=== PATIENT | female | born 1970 | race American Indian/Alaskan Native ===

== ENCOUNTER 2018-08-15 11:00 | Inpatient (IN) | payer OTHER ==
--- NOTE | 2018-08-15 11:35 | ED PDOC ---
Arrival/HPI - General Time Seen by Provider: 08/15/18 11:21 Historian: Patient - History of Present Illness Narrative History of Present Illness (Text): 08/15/18 11:31 47 y/o female, pmh including asthma, taking control medication, nkda, c/o rt. lower leg discomfort x5 days and shortness of breath x 2 days. Pt. stated that she takes control, admits rt. lower leg discomfort x 5 days, admits exertional shortness of breath started 2 days ago, went to the urgent care and send to the ER for evaluation as there is concerning for PE. Pt. has no palpitation, no numbness or tingling, no rash, no nausea or vomiting, no headache or neck pain, no other medical or psychological complaints. Past Medical History - Provider Review Nursing Documentation Reviewed: Yes - Psychiatric Hx Substance Use: No Family/Social History - Physician Review Nursing Documentation Reviewed: Yes Family/Social History: Unknown Family HX Smoking Status: Never Smoked Hx Alcohol Use: No Hx Substance Use: No Allergies/Home Meds Allergies/Adverse Reactions: Allergies No Known Allergies Allergy (Verified 08/15/18 11:19) Review of Systems - Review of Systems Constitutional: absent: Fatigue, Fevers Eyes: absent: Vision Changes ENT: absent: Hearing Changes Respiratory: SOB. absent: Cough, Sputum Cardiovascular: absent: Chest Pain Gastrointestinal: absent: Abdominal Pain, Nausea, Vomiting Musculoskeletal: absent: Arthralgias, Back Pain Skin: absent: Rash, Pruritis Neurological: absent: Headache, Dizziness Psychiatric: absent: Anxiety, Depression Physical Exam Vital Signs Reviewed: Yes Temperature: Afebrile Blood Pressure: Hypertensive Pulse: Tachycardic Respiratory Rate: Normal Appearance: Positive for: Well-Appearing, Non-Toxic, Comfortable Pain Distress: None Mental Status: Positive for: Alert and Oriented X 3 - Systems Exam Head: Present: Atraumatic, Normocephalic Pupils: Present: PERRL Extroacular Muscles: Present: EOMI Conjunctiva: Present: Normal Mouth: Present: Moist Mucous Membranes Neck: Present: Normal Range of Motion Respiratory/Chest: Present: Clear to Auscultation, Good Air Exchange. No: Respiratory Distress, Accessory Muscle Use Cardiovascular: Present: Regular Rate and Rhythm, Normal S1, S2, Other (no edema). No: Murmurs Abdomen: No: Tenderness, Distention, Peritoneal Signs, Rebound, Guarding Back: Present: Normal Inspection Upper Extremity: Present: Normal Inspection. No: Cyanosis, Edema Lower Extremity: Present: Normal Inspection, NORMAL PULSES, Normal ROM, Neurovascularly Intact, Capillary Refill < 2 s. No: Edema, CALF TENDERNESS, Cyanosis, Rajani's Sign, Tenderness, Swelling, Erythema, Deformity, Temperature Abnormalties Neurological: Present: GCS=15, CN II-XII Intact, Speech Normal, Motor Func Grossly Intact, Gait Normal, Memory Normal Skin: Present: Warm, Dry, Normal Color. No: Rashes Psychiatric: Present: Alert, Oriented x 3, Normal Insight, Normal Concentration Medical Decision Making ED Course and Treatment: 08/15/18 11:36 -Labs -ekg -CTA Chest WELL criteria over 7 -RLE Venuous doppler -monitoring analyst 08/15/18 13:01 -Urine hcg: -EKG: Sinus Tachycardia @ 119 BPM, no ST elevation or depression, no T wave inversion. -CTA show Acute extensive bilateral pulmonary embolism involving the segmental and distal smaller branches in both lungs. Clear lungs. -RLE venuous doppler: -Labs are non-significant -Trop is negative -BNP is negative -Dimer 5250 -monitoring analyst -Pt. is vitally stable -Pt. has no heart strain, BNP and trop is normal, vitally stable -Pt. refused guaiac and no black stool and abominal pain/nausea/vomiting. -I discussed with Dr. Sutton, covering for Dr. Rushing (medical service montessori teacher), agreed to admit this patient but under Dr. Rushing service for telemetry and heparin. -I discussed with the patient/attending DR. Keane about this case and they agreed with the plan of care. -Will start IV heparin bolus and drip. - RAD Interpretation Radiology Orders: 08/15/18 11:29 ANGIO CHEST PE PROTOCOL [CT] Stat CTA Chest: Date of service: 08/15/2018 PROCEDURE: CT Chest with contrast (Pulmonary Angiogram) HISTORY: r/o pe, tachycardia COMPARISON: None available. TECHNIQUE: Axial computed tomography images were obtained of the chest in the pulmonary arterial phase of enhancement. Coronal and sagittal reformatted images were created and reviewed. Intravenous contrast dose: 100 mL Visipaque 320 Radiation dose: Total exam DLP = 531.59 mGy-cm. This CT exam was performed using one or more of the following dose reduction techniques: Automated exposure control, adjustment of the mA and/or kV according to patient size, and/or use of iterative reconstruction technique. FINDINGS: PULMONARY ARTERIES: There are extensive filling defects in the bilateral upper lobe, right middle lobe, lingular and lower lobe segmental and distal smaller pulmonary arteries. No evidence of saddle embolus. AORTA: No acute findings. No thoracic aortic aneurysm. No aortic atherosclerotic calcification or mural plaque present. LUNGS: The lungs are well inflated and clear. No nodule, mass or pulmonary consolidation. PLEURAL SPACES: No effusion or pneumothorax. HEART: No cardiomegaly. No significant pericardial effusion. No definite evidence for right ventricular strain. LYMPH NODES: No lymphadenopathy. BONES, CHEST WALL: Within normal limits for the patient's age. No fracture or destructive lesion OTHER FINDINGS: Unremarkable. IMPRESSION: Acute extensive bilateral pulmonary embolism involving the segmental and distal smaller branches in both lungs. Clear lungs. RLE Venuous Doppler: as per preliminary report, no acute DVT but there is lezama cyst. Process Tech: Radiologist - EKG Interpretation EKG Interpretation (Text): 08/15/18 11:40 Sinus Tachycardia @ 119 BPM, no ST elevation or depression, no T wave inversion. Interpreted by ED Physician: Yes Type: 12 lead EKG - PA / PRINT PROJECT MANAGER / Resident Statement MD/DO has reviewed & agrees with the documentation as recorded. Disposition/Present on Arrival - Present on Arrival Any Indicators Present on Arrival: No History of DVT/PE: No History of Uncontrolled Diabetes: No Urinary Catheter: No History of Decub. Ulcer: No History Surgical Site Infection Following: None - Disposition Have Diagnosis and Disposition been Completed?: Yes Diagnosis: Pulmonary embolism Disposition: HOSPITALIZED Disposition Time: 13:03 Patient Plan: Admission, Telemetry Patient Problems: Current Active Problems Problem Status Onset Pulmonary embolism Acute Condition: GUARDED
[2018-08-15 11:47] LABS: BASO # 0.01 K/mm3 (0.0-2.0); BASO % 0.1 % (0.0-3.0); EOS # 0.2 (0.0-0.7); EOS % 2.3 % (1.5-5.0); GRAN # 6.29 (1.4-6.5); GRAN % 68.3 % (50.0-68.0); HEMOGLOBIN 12.4 g/dL (12.0-16.0); LYMPH # 2.3 (1.2-3.4); LYMPH % 24.8 % (22.0-35.0); MEAN CELL VOLUME 77.3 fl (80.0-105.0); MEAN CORPUSCULAR HEMOGLOBIN 26.3 pg (25.0-35.0); MEAN PLATELET VOLUME 8.7 fl (7.0-11.0); MONO # 0.4 (0.1-0.6); MONO % 4.5 % (1.0-6.0); RBC 4.72 10^6/uL (3.5-6.1); RED CELL DISTRIBUTION WIDTH 13.8 % (11.5-14.5); WHITE BLOOD COUNT 9.2 10^3/uL (4.5-11.0)
[2018-08-15 12:01] LABS: ALBUMIN 4.1 g/dL (3.0-4.8); ALT/SGPT 21 U/L (7-56); AST/SGOT 28 U/L (14-36); BLOOD UREA NITROGEN 12 mg/dL (7-21); CALCIUM 9.8 mg/dL (8.4-10.5); GFR NON-AFRICAN AMERICAN 60
[2018-08-15 12:05] LABS: INR 1.04; PARTIAL THROMBOPLASTIN TIME 24.8 Seconds (25.1-36.5)
[2018-08-15 12:07] LABS: D DIMER > 5250 ng/mlDDU (0-243)
[2018-08-15] MEDS ORDERED: Iodixanol 320 MG/ML 100 ML BOTTLE IV ONE (12:12)
[2018-08-15 12:13] LABS: B-TYPE NATRIURETIC PEPTIDE 381 pg/mL (0-450); TROPONIN I 0.02 ng/mL
--- NOTE | 2018-08-15 12:52 | CT ---
Date of service: 08/15/2018 PROCEDURE: CT Chest with contrast (Pulmonary Angiogram) HISTORY: r/o pe, tachycardia COMPARISON: None available. TECHNIQUE: Axial computed tomography images were obtained of the chest in the pulmonary arterial phase of enhancement. Coronal and sagittal reformatted images were created and reviewed. Intravenous contrast dose: 100 mL Visipaque 320 Radiation dose: Total exam DLP = 531.59 mGy-cm. This CT exam was performed using one or more of the following dose reduction techniques: Automated exposure control, adjustment of the mA and/or kV according to patient size, and/or use of iterative reconstruction technique. FINDINGS: PULMONARY ARTERIES: There are extensive filling defects in the bilateral upper lobe, right middle lobe, lingular and lower lobe segmental and distal smaller pulmonary arteries. No evidence of saddle embolus. AORTA: No acute findings. No thoracic aortic aneurysm. No aortic atherosclerotic calcification or mural plaque present. LUNGS: The lungs are well inflated and clear. No nodule, mass or pulmonary consolidation. PLEURAL SPACES: No effusion or pneumothorax. HEART: No cardiomegaly. No significant pericardial effusion. No definite evidence for right ventricular strain. LYMPH NODES: No lymphadenopathy. BONES, CHEST WALL: Within normal limits for the patient's age. No fracture or destructive lesion OTHER FINDINGS: Unremarkable. IMPRESSION: Acute extensive bilateral pulmonary embolism involving the segmental and distal smaller branches in both lungs. Clear lungs. Critical findings were discussed with RIANA Eid on 08/15/2018 at 12:45 p.m.
[2018-08-15] MEDS ORDERED: Heparin25000 units/250ml 1/2NS 25,000 UNITS/250 ML BAG IV PRN (13:07)
[2018-08-15] MEDS: Heparin25000 units/250ml 1/2NS 25,000 UNITS/250 ML BAG IV PRN ×2 (13:24→20:47)
[2018-08-15 15:21] VITALS: BMI 34.8
[2018-08-16] MEDS: Heparin25000 units/250ml 1/2NS 25,000 UNITS/250 ML BAG IV PRN (04:34)
--- NOTE | 2018-08-16 10:03 | CARD ---
APPROVED REPORT Date of service: 08/15/2018 EKG Measurement Heart [id number] <Conclusion> Sinus tachycardia LAD PRWP RVCD
--- NOTE | 2018-08-16 10:56 | US ---
PROCEDURE: Right lower extremity venous US HISTORY: Leg pain and swelling. Evaluate for DVT. PHYSICIAN(S): Rufino Shelton M.D. TECHNIQUE: Duplex sonography and color-flow Doppler with graded compression were used to evaluate the deep venous system of the right lower extremity. FINDINGS: The exam is very limited by body habitus and edema P There appears to be acute occlusive thrombus in the duplicated right popliteal vein. The right femoral vein and right common femoral vein are patent and compressible. IMPRESSION: 1. Acute occlusive DVT in the duplicated right popliteal vein
[2018-08-16] MEDS: Levalbuterol 1.25 MG/3 ML Inhal Soln UD IH SCH ×2 (13:46→19:49)
--- NOTE | 2018-08-16 14:26 | CON ---
DATE: 08/16/2018 PULMONARY CONSULTATION REASON FOR PULMONARY CONSULTATION: Pulmonary embolism. REFERRING PHYSICIAN: Dr. Epi Rivera. HISTORY OF PRESENT ILLNESS: The patient is a 47-year-old female, with past medical history significant for asthma, on control medication, mild obesity, who presents to [facility] with main complaints of increasing shortness of breath at rest and dyspnea on exertion for the past 2 days. The patient denies cough or sputum production. There is no history of chest pain, coughing up of blood, or chest pain - made worse with deep respirations. There is no history of temperatures, chills or infectious exposure. There is no history of night sweats, weight loss or appetite change prior to the above events. The patient does state to some right lower leg(calf) discomfort for the past 5 days. No history of syncope or diaphoresis. No history of recent travel or trauma. REVIEW OF SYSTEMS: No history of nausea, vomiting or diarrhea. No acute urinary symptoms. No new neurologic complaints. Rest of the review of systems is negative. ALLERGIES: NO KNOWN ALLERGIES. SOCIAL HISTORY: Negative tobacco, negative for alcohol. FAMILY HISTORY: No inheritable diseases. HOME MEDICATIONS: Include control pills, ProAir MDI (on a p.r.n. basis). PHYSICAL EXAMINATION: GENERAL: The patient appears very comfortable this morning. She is not short of breath at rest. VITAL SIGNS: Temperature is 98.6, pulse 96, respirations 18, blood pressure 150/95. Oxygen saturation on room air is 98%. HEENT: Normocephalic, atraumatic. No JVD. CARDIOVASCULAR: Positive S1, S2. No S3 gallop. LUNGS: Clear bilaterally. EXTREMITIES: The right lower extremity(calf) is slightly increased in size compared to the left lower extremity (calf). There is mild edema in both lower extremities. There is no cyanosis or clubbing. Both calves are nontender to palpation. GI: Abdomen is soft, nontender and nondistended. Bowel sounds are positive. SKIN: No acute rash. NEUROLOGIC: Exam limited at the present time. PERTINENT LABORATORY DATA: CAT scan of the chest was done as an angiogram protocol. There are acute extensive bilateral pulmonary emboli noted. There is no mass, nodule or pulmonary consolidation noted. There is no lymphadenopathy. CBC: White count 9.2K, hemoglobin 12.4, hematocrit 36.5, platelets of 244,000. Last PTT in the computer 79.4. Complete metabolic profile: Chloride 108, glucose 112. Rest of the metabolic profile is within normal limits. IMPRESSION: 1. Bilateral pulmonary emboli. 2. Rule out right deep venous thrombosis. 3. Asthma. 4. Mild obesity. PLAN: I did discuss the case with the night nurse at length. I have also reviewed the chart at length, and discussed the case with the patient at length. The patient presents to [facility] with main complaints of increasing shortness of breath at rest and dyspnea on exertion for the past 2 days. The patient also complains of right lower extremity(calf) pain for the past 5 days. She offers no other pulmonary symptoms. I did review the CAT scan of the chest. Findings are noted above. The CAT scan is positive for bilateral pulmonary emboli. The patient has been started on the heparin protocol. We are awaiting the official results of the duplex leg studies. I will also order an echocardiogram(check right ventricle) - given the above CAT scan. The patient is hemodynamically stable at present with no significant alveolar- arterial gradient. Lastly, I would also consider a hematology evaluation. The patient is feeling much better this morning, and is clinically improved. We will evaluate the patient for an oral agent (evaluate her insurance coverage) over the next 24 hours. Additional pulmonary intervention will be based on the clinical status of the patient. I will discuss the above with the attending physician. Thank you very much for this Pulmonary consultation. Mikey Webster MD [id number]
--- NOTE | 2018-08-16 20:09 | HP ---
HISTORY OF PRESENT ILLNESS: The patient is 47 years old she states she has not been feeling well since last Thursday. She felt little tightness in her right leg, she has just dismissed it. However on Thursday, she started to get shortness of breath not related to any activity. She went to see the MD. When they checked her pulse ox and heart rate, she was found to be tachycardiac and they advised her to come to emergency room for further evaluation. She denies any fever or chills. No history of nausea or vomiting. PAST MEDICAL HISTORY: She has no significant past medical history. SOCIAL HISTORY: She is not . She has no children. She does have a boyfriend. She takes control pill that she has been taking for years. No history of recent travel or recent trauma. 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 ALLERGY: SHE IS NOT ALLERGIC TO ANY MEDICATION. MEDICATION: She is not on any medication at home. PHYSICAL EXAMINATION: GENERAL: On examination today, she is awake, alert, oriented, communicative. VITAL SIGNS: She is afebrile. Pulse 81, respirations 18, blood pressure 131/90. LUNGS: Bilateral fair airflow. No rhonchi or crackle. HEART: S1, S2 audible. ABDOMEN: Soft and nontender. No rebound. No guarding. NEUROLOGIC: She is awake, alert, oriented, communicative, ambulatory. LABORATORY DATA: WBC 9.2, hemoglobin 12, hematocrit 36, platelet 244. PTT is 78. Chemistry; sodium 141, potassium 4.2, chloride 108, CO2 of 24, BUN 12, creatinine 1.0. Blood sugar 112. She had leg Doppler that shows acute occlusive DVT in the duplicate right popliteal vein and CT angio shows acute extensive bilateral pulmonary embolism involving segmental and distal small in both lungs. ASSESSMENT: 1. Bilateral pulmonary embolism. 2. Right popliteal deep vein thrombosis. PLAN: Currently, the patient is on heparin. I will request Dr. Alexander for her input. I will start her on nebulizer treatment. Will need coagulation workup done to determine her anticoagulation duration. Cesia Rushing MD [facility] # [id number]
[2018-08-17] MEDS: Levalbuterol 1.25 MG/3 ML Inhal Soln UD IH SCH ×3 (01:25→14:20)
[2018-08-17] MEDS ORDERED: DiphenhydrAMINE 50 mg/ml Inj IVP ONE (02:17)
--- NOTE | 2018-08-17 08:02 | PN ---
DATE: 08/17/2018 PULMONARY NOTE SUBJECTIVE: The patient appears very comfortable this morning. She is not short of breath at rest. PHYSICAL EXAMINATION: VITAL SIGNS: Temperature is 98.1, pulse 88, respirations 18/20, blood pressure 130/81. Oxygen saturation on room air is 99-100%. HEENT: Normocephalic, atraumatic. No JVD. CARDIOVASCULAR: Positive S1, S2. No S3 gallop. LUNGS: Clear bilaterally. EXTREMITIES: The right lower extremity is decreased in size - still very slightly larger compared to the left lower extremity (calf). There is mild edema in both lower extremities. There is no cyanosis or clubbing. Both calves are nontender to palpation. GI: Abdomen is soft, nontender and nondistended. Bowel sounds are positive. SKIN: No acute rash. NEUROLOGIC: Exam limited at the present time. PERTINENT LABORATORY DATA: Doppler ultrasound of the extremities was done on 08/15/2018. There is an acute occlusive deep venous thrombosis in the right popliteal vein. IMPRESSION: 1. Bilateral pulmonary emboli. 2. Right deep venous thrombosis. 3. Asthma. 4. Mild obesity. PLAN: The patient appears very comfortable this morning. She is not short of breath at rest. She does state to much less dyspnea on exertion. She does state to feeling much, much better overall. On physical exam, her lungs remain clear. The oxygen saturation on room air is 99-100%. The patient has been started on scheduled Xopenex treatments by Dr. Rushing. She does have a history of asthma. However, she only uses a metered-dose inhaler rarely (on a p.r.n. basis). Hypercoagulable workup is in progress. Hematology evaluation with Dr. Alexander has been ordered. Echocardiogram has also been ordered - not done yet. Clinical status of the patient is significantly improved - compared to the initial presentation. Again, we will try to change to an oral agent in the next 24-48 hours. Repeat a.m. labs are pending. I will discuss the above with the attending physician. Mikey Webster MD [facility] # [id number] YOLIS
[2018-08-17] MEDS: Heparin25000 units/250ml 1/2NS 25,000 UNITS/250 ML BAG IV PRN (12:31)
[2018-08-17] MEDS ORDERED: MethylPREDNISolone 40 mg Vial IVP ONE (15:14)
--- NOTE | 2018-08-17 17:45 | CARD ---
APPROVED REPORT Date of service: 08/17/2018 EXAM: Two-dimensional and M-mode echocardiogram with Doppler and color Doppler. INDICATION Pulmonary Embolism 2D DIMENSIONS Left Atrium (2D)3.5 (1.6-4.0cm)IVSd0.9 (0.7-1.1cm) LVDd4.4 (3.9-5.9cm)PWd1.1 (0.7-1.1cm) LVDs2.9 (2.5-4.0cm)FS (%) 35.1 % LVEF (%)64.6 (>50%) M-Mode DIMENSIONS Aortic Root3.30 (2.2-3.7cm)Aortic Cusp Exc.1.60 (1.5-2.0cm) Aortic Valve AoV Peak Zssskruv594.0cm/Nathan Peak GR.5mmHg Mitral Valve MV E Gytihckk19.6cm/sMV A Txdugvdx18.6cm/sE/A ratio1.0 TDI E/Lateral E'0.0E/Medial E'0.0 Tricuspid Valve TR Peak Zmefymya222vm/sRAP [id number] Peak Gr.20mmHg [id number] LEFT VENTRICLE The left ventricle is normal size. There is normal left ventricular wall thickness. The left ventricular function is normal. The left ventricular ejection fraction is within the normal range. There is normal LV segmental wall motion. Transmitral Doppler flow pattern is Grade I-abnormal relaxation pattern. RIGHT VENTRICLE The right ventricle is normal size. There is normal right ventricular wall thickness. The right ventricular systolic function is normal. ATRIA The left atrium size is normal. The right atrium size is normal. AORTIC VALVE The aortic valve is normal in structure. No aortic regurgitation is present. There is no aortic valvular stenosis. MITRAL VALVE The mitral valve is normal in structure. There is no mitral valve regurgitation noted. There is no mitral valve stenosis. TRICUSPID VALVE The tricuspid valve is normal in structure. There is trace tricuspid regurgitation. PULMONIC VALVE The pulmonary valve is normal in structure. There is mild pulmonic valvular regurgitation. GREAT VESSELS The aortic root is normal in size. PERICARDIAL EFFUSION There is no pericardial effusion. <Conclusion> The left ventricle is normal size. There is normal left ventricular wall thickness. The left ventricular function is normal. The left ventricular ejection fraction is within the normal range. There is normal LV segmental wall motion. Transmitral Doppler flow pattern is Grade I-abnormal relaxation pattern.
--- NOTE | 2018-08-17 22:35 | PN ---
DATE: 08/17/2018 SUBJECTIVE: The patient is 47 years old, seen and examined, sitting in chair, seems to be doing much better. She states her shortness of breath is much better. PHYSICAL EXAMINATION: VITAL SIGNS: She is afebrile, pulse 103, respirations 18, blood pressure 137/95. LUNGS: Bilateral fair airflow. No rhonchi or crackle. HEART: S1 and S2 audible. ABDOMEN: Soft. Nontender. No rebound. No guarding. NEUROLOGICAL: The patient is awake, alert, oriented, communicative. ECHOCARDIOGRAM: Left ventricle normal in size and thickness. Function is within normal limit. Ejection fraction is within normal limit. ASSESSMENT AND PLAN: Bilateral leg deep venous thrombosis, bilateral pulmonary embolism, probably secondary to oral contraceptives. Coagulation workup is in progress. The patient has been started on Eliquis 10 mg twice a day for 10 days and then it will be switched to 5 mg twice a day until the workup is back. The patient did have allergic reaction to Xopenex, that we will discontinue. Give her Claritin and give her dose of Solu-Medrol. We will reevaluate the patient in the a.m. and make discharge plan. Cesia Rushing MD
[2018-08-18 05:53] VITALS: O2SAT 94
--- NOTE | 2018-08-18 10:43 | CP.PCM.CON ---
History of Present Illness - History of Present Illness History of Present Illness: 47 year old female with a history of asthma, admitted with right popliteal DVT, and bilateral PE. The patient notes to discomfort in her right leg which she thought was related to pulled muscle. She began to have progressive shortness of breath and went to an urgent care clinic this past week and told to come to the ER due to concern for PE. In the ER, she was found to have a right popliteal DVT and bilateral pulmonary embolism. She was started on a heparin drip and reports to feeling better. Of note, she is taking oral control pills. She denies immobility and trauma to her extremities. Past medical history: Asthma Past surgical history: Denies Family history: Denies hematologic and oncologic problems Social history: Denies tobacco, alcohol, and illicit drug use. Allergies: Levalbuterol Review of systems: All remaining review of systems including HEENT, cardiovascular, respiratory, gastrointestinal, genitourinary, musculoskeletal, dermatologic, neurologic, and psychiatric are negative unless mentioned in the HPI. Past Patient History - Past Social History Smoking Status: Never Smoked - PULMONARY Hx Asthma: Yes - MUSCULOSKELETAL/RHEUMATOLOGICAL Hx Falls: No - PSYCHIATRIC Hx Substance Use: No - SURGICAL HISTORY Hx Surgeries: No Meds Allergies/Adverse Reactions: Allergies Allergy/AdvReac Type Severity Reaction Status Date / Time levalbuterol [From Xopenex] Allergy Intermediate RASH Verified 08/17/18 15:50 - Medications Medications: Current Medications Apixaban (Eliquis) 10 mg PO Q12 TERRIE; Protocol Last Admin: 08/18/18 10:03 Dose: 10 mg Physical Exam - Head Exam Head Exam: ATRAUMATIC - Eye Exam Eye Exam: Normal appearance - ENT Exam ENT Exam: Mucous Membranes Dry - Respiratory Exam Respiratory Exam: NORMAL BREATHING PATTERN - Cardiovascular Exam Cardiovascular Exam: +S1, +S2 - GI/Abdominal Exam GI & Abdominal Exam: Normal Bowel Sounds - Extremities Exam Extremities exam: Positive for: pedal edema - Neurological Exam Neurological exam: Oriented x3 - Psychiatric Exam Psychiatric exam: Normal Affect, Normal Mood - Skin Skin Exam: Warm Results - Vital Signs Recent Vital Signs: Last Vital Signs Temp 98.5 F 08/18/18 05:52 Pulse 90 08/18/18 05:52 Resp 21 08/18/18 05:52 BP 119/73 08/18/18 05:52 Pulse Ox 94 L 08/18/18 05:52 - Labs Result Diagrams: 08/15/18 11:35 08/15/18 11:35 Labs: Laboratory Results - last 24 hr 08/16/18 13:30 Anti-Cardiolipin IgG Ab <14 Assessment & Plan (1) Pulmonary embolism Assessment and Plan: with right popliteal DVT likely provoked from control pills; pt instructed to stop and notify ROLL CHANGER of DVT/PE on heparin drip outpatient Eliquis 10mg BID x 7 days, followed by 5mg BID x6 months inherited thrombophilia w/u sent. F/u 1 week with me in the office Status: Acute (2) Coagulopathy Assessment and Plan: secondary to anticoagulation Thank you for this interesting consult. Status: Acute
--- NOTE | 2018-08-18 11:49 | PN ---
PULMONARY NOTE DATE: 08/18/2018 SUBJECTIVE: The patient appears very comfortable this morning. She is not short of breath at rest. PHYSICAL EXAMINATION: VITAL SIGNS: Temperature is 98.5, pulse on the monitor is 84, respiratory rate 18, and blood pressure 119/73. Oxygen saturation on nasal cannula is 94%-97%. HEENT: Normocephalic and atraumatic. No JVD. CARDIOVASCULAR: Positive S1 and S2. No S3 gallop. LUNGS: Clear bilaterally. EXTREMITIES: The right calf continues to decrease in size - almost the same size as the left calf. There is mild edema in both lower extremities. There is no cyanosis or clubbing. Both calves are nontender to palpation. GASTROINTESTINAL: Abdomen is soft, nontender, and nondistended. Bowel sounds are positive. SKIN: No acute rash. NEUROLOGIC: Limited at the present time. IMPRESSION: 1. Bilateral pulmonary emboli. 2. Right deep venous thrombosis. 3. Asthma. 4. Mild obesity. PLAN: The patient appears very comfortable this morning. She is not short of breath at rest. She is no longer short of breath with exertion. She does state to feeling much, much better overall. On physical exam, her lungs remain clear. In addition, there is no significant alveolar-arterial gradient. The patient is now off nebulizer treatments. The patient has been transitioned to Eliquis therapy - for her pulmonary embolism. We are awaiting a Hematology evaluation. Workup is in progress. Clinical status of the patient is significantly improved overall. Hopefully, she is for discharge in the near future. She does have my card/information for a followup appointment. I will discuss the above with Dr. Rushing. Mikey Webster MD MTDJasmin
[2018-08-18 12:18] VITALS: BP 178/82; PULSE 81; RESP 18; TEMP 98.9
--- NOTE | 2018-08-19 08:48 | DS ---
HISTORY OF PRESENT ILLNESS: Patient is 47 years old, seen and examined, doing lot better. No nausea or vomiting. No diarrhea. No fever. No chills. Less shortness of breath. PHYSICAL EXAMINATION: VITAL SIGNS: She is afebrile, pulse 90, respirations 21, and blood pressure 119/73. LUNGS: Bilateral fair airflow. No rhonchi or crackle. HEART: S1, S2 audible. ABDOMEN: Soft, nontender. No rebound. No guarding. NEUROLOGIC: Patient is awake, alert, oriented, communicative, and ambulatory. LABORATORY DATA: Laboratory exam, her PTT is 70.2. Chemistry, homocysteine is 7.3, anticardiolipin antibody is less than 14. ASSESSMENT: 1. Bilateral PE. 2. Bilateral deep vein thromboses, probably secondary to control pills. PLAN: Patient is being discharged today. She was advised not to be on oral contraceptive, they should use barrier method and discuss further option with [employer], and she is being discharged home today on Eliquis 10 mg twice a day for a week and then 5 mg twice a day and then she will be followed by Dr. Kd Michael in his office and to follow up further workup. Cesia Rushing MD
--- NOTE | 2018-08-20 08:34 | PQF ---
PROVIDER RESPONSE TEXT: Mild intermittent asthma REVIEWER QUERY TEXT: Asthma Specificity and Type Asthma is documented in the Medical Record. Please specify the type and severity of asthma and indic ate if this is associated with exacerbation or status asthmaticus. Such as: -- Mild intermittent -- Mild persistent -- Moderate persistent -- Severe persistent -- Exercise induced bronchospasm -- Cough variant asthma -- Other, please specify The patient's Clinical Indicators include: Please see below. Thank you. Query created by: Shanda Arrington on 08/19/2018 11:48 AM Electronically signed by: Mikey MOYA 08/20/2018 8:31 AM
[2018-08-21 03:30] LABS: B2 GLYCOPROTEIN I AB(IGA) <9 SAU (<=20); B2 GLYCOPROTEIN I AB(IGG) <9 SGU (<=20); B2 GLYCOPROTEIN I AB(IGM) 10 SMU (<=20)
[2018-08-21 05:23] LABS: CARDIOLIPIN AB (IGA) <11 APL (<=11); CARDIOLIPIN AB (IGG) <14 GPL (<=14); CARDIOLIPIN AB (IGM) <12 MPL (<=12)
[2018-08-21 05:42] LABS: PHOSPHATIDYLSERINE AB IGA <20 U/mL (<20); PHOSPHATIDYLSERINE AB IGG <10 U/mL (<10); PHOSPHATIDYLSERINE AB IGM <25 U/mL (<25)
== END 2018-08-18 14:48 | disposition home or self-care (01) | DRG 299 ==
LOC: ED 11:15 → ERH 13:06 → 2RSO 14:26
PROVIDERS: ADMIT Internal Medicine; ATTEND Internal Medicine
DX: I82.431 Acute embolism and thrombosis of right popliteal vein (principal); I26.99 Other pulmonary embolism without acute cor pulmonale; D68.9 Coagulation defect, unspecified; I82.403 Acute embolism and thrombosis of unspecified deep veins of lower extremity, bilateral; J45.20 Mild intermittent asthma, uncomplicated; E66.9 Obesity, unspecified; Z87.09 Personal history of other diseases of the respiratory system; M71.20 Synovial cyst of popliteal space [Baker], unspecified knee; Z88.8 Allergy status to other drugs, medicaments and biological substances

== ENCOUNTER 2018-11-14 14:24 | Observation (INO) | payer BC, OTHER ==
[2018-11-14] MEDS ORDERED: Morphine 2 mg/ml ISec IVP STA (14:46)
[2018-11-14 15:05] LABS: ALB/GLOB RATIO 1.1 (1.1-1.8); ALBUMIN 4.4 g/dL (3.0-4.8); ALT/SGPT 29 U/L (7-56); AST/SGOT 38 U/L (14-36); BLOOD UREA NITROGEN 18 mg/dL (7-21); CALCIUM 10.7 mg/dL (8.4-10.5); GFR NON-AFRICAN AMERICAN 59
--- NOTE | 2018-11-14 15:11 | ED PDOC ---
Arrival/HPI - General Chief Complaint: Chest Pain Time Seen by Provider: 11/14/18 14:37 Historian: Patient - Critical Care Critical Care Minutes: Other (10 minutes) - History of Present Illness Narrative History of Present Illness (Text): 11/14/18 15:08 A 48 year old female, whose past medical history includes DVT on Xarelto, presents to the emergency department complaining of back pain radiating to chest. Patient reports back pain feels worse than chest pain. At this time patient appears to be anxious. Patient denies any shortness of breath, or any other complaints at this time. No PMD Past Medical History - Provider Review Nursing Documentation Reviewed: Yes - Reproductive Currently : No - Pulmonary Hx Asthma: Yes Hx Pulmonary Embolism: Yes - Musculoskeletal/Rheumatological Hx Falls: No Other/Comment: DVT - Psychiatric Hx Substance Use: No Family/Social History - Physician Review Nursing Documentation Reviewed: Yes Family/Social History: No Known Family HX Smoking Status: Never Smoked Hx Alcohol Use: No Hx Substance Use: No Allergies/Home Meds Allergies/Adverse Reactions: Allergies levalbuterol [From Xopenex] Allergy (Intermediate, Verified 08/17/18 15:50) RASH rash and pruities Home Medications: Home Meds Medication Instructions Recorded Confirmed Rivaroxaban [Xarelto] 20 mg PO DAILY 11/14/18 11/14/18 Review of Systems - Physician Review All systems were reviewed & negative as marked: Yes - Review of Systems Cardiovascular: Chest Pain Musculoskeletal: Back Pain (radiating to chest) Psychiatric: Anxiety Physical Exam Vital Signs Reviewed: Yes Vital Signs Temp Pulse BP Pulse Ox 11/14/18 14:45 98.0 F 99 11/14/18 14:39 87 141/84 Blood Pressure: Normal Pulse: Regular Appearance: Positive for: Well-Appearing, Non-Toxic, Comfortable Pain Distress: None Mental Status: Positive for: Alert and Oriented X 3 - Systems Exam Head: Present: Atraumatic, Normocephalic Pupils: Present: PERRL Extroacular Muscles: Present: EOMI Conjunctiva: Present: Normal Mouth: Present: Moist Mucous Membranes Neck: Present: Normal Range of Motion. No: JVD Respiratory/Chest: Present: Clear to Auscultation, Good Air Exchange. No: Respiratory Distress, Accessory Muscle Use Cardiovascular: Present: Regular Rate and Rhythm, Normal S1, S2. No: Murmurs Abdomen: No: Tenderness, Distention, Peritoneal Signs Back: Present: Normal Inspection, Other (back pain radiating to chest region.) Upper Extremity: Present: Normal Inspection. No: Cyanosis, Edema Lower Extremity: Present: Normal Inspection. No: Edema Neurological: Present: GCS=15, CN II-XII Intact, Speech Normal Skin: Present: Warm, Dry, Normal Color. No: Rashes Psychiatric: Present: Alert, Oriented x 3, Normal Insight, Normal Concentration Medical Decision Making ED Course and Treatment: 11/14/18 15:11 Impression: 48 year old female with back pain radiating to chest. Differential Diagnoses: chest pain and back pain rule out DC. Plan: -- EKG -- Chest X-ray -- Labs -- Angiography Disection CT -- Morphine -- Urinalysis -- Nasal Cannula O2 -- Reassess and disposition Progress Notes: 11/14/18 14:28 EKG: Ordered, reviewed, and independently interpreted the EKG. Rate : 106 BPM Rhythm : Sinus tachycardia. Interpretation : Left axis deviation, with ST-elevations at v1 and v2, no reciprocal changes. Comparison : No previous EKG for comparison. 11/14/18 14:35 EKG: Ordered, reviewed, and independently interpreted the EKG. Rate : 94 BPM Rhythm : NSR Interpretation : Left axis deviation, isolated v2 ST-elevation. Comparison : No previous EKG for comparison. 11/14/18 14:[address] Giron, who requested to have EKG messaged to him. 11/14/18 14:45 Dr. Giron calls and states it is not a STEMI, requesting to have a repeat EKG at 15:00 and to continue monitoring patient. 11/14/18 15:04 EKG: Ordered, reviewed, and independently interpreted the EKG. Rate : 92 BPM Rhythm : NSR Interpretation : Left axis deviation, no ST- or T- wave changes. Comparison : No previous EKG for comparison. 11/14/18 15:08 Dr. Giron states repeat EKG shows no STEMI, and to continue monitoring patient. 11/14/2018 16:[address] IMPRESSION: No evidence of aortic dissection or aneurysm. Previously noted bilateral central pulmonary emboli in the previous CTA is not clearly seen in the current study. Mild pulmonary vascular congestion. No CT evidence of acute pathology in the abdomen and pelvis. Dictator: Linda Lewis MD - Lab Interpretations Lab Results: Total Bilirubin 0.3 mg/dL (0.2-1.3) 11/14/18 14:51 AST 38 U/L (14-36) H D 11/14/18 14:51 ALT 29 U/L (7-56) 11/14/18 14:51 Alkaline Phosphatase 88 U/L (38-126) 11/14/18 14:51 Total Protein 8.4 g/dL (5.8-8.3) H 11/14/18 14:51 Albumin 4.4 g/dL (3.0-4.8) 11/14/18 14:51 Globulin 4.0 gm/dL 11/14/18 14:51 Albumin/Globulin Ratio 1.1 (1.1-1.8) 11/14/18 14:51 - RAD Interpretation Radiology Orders: 11/14/18 14:48 CHEST ONE VIEW [RAD] Stat - Medication Orders Current Medication Orders: Discontinued Medications Morphine Sulfate (Morphine) 2 mg IVP STAT STA Stop: 11/14/18 14:47 Last Admin: 11/14/18 15:03 Dose: 2 mg MAR Pain Assessment Document 11/14/18 15:03 MR (Rec: 11/14/18 15:05 [id number] Pain Reassessment Is this a pain reassessment? Yes Sleep Is patient sleeping during reassessment? No Presence of Pain Presence of Pain Yes Pain Scale Used Protocol: PSCALES Pain Scale Used Numeric Location Left, Right or Bilateral Right Pain Location Body Site Back Description Description Sharp Intensity of Pain at present 5 Aggravating Factors Changing Position IVP Administration Document 11/14/18 15:03 MR (Rec: 11/14/18 15:05 [id number] Charges for Administration # of IVP Administrations 1 - Scribe Statement The provider has reviewed the documentation as recorded by the Hemalathaibana maria Casper Provider Scribe Attestation: All medical record entries made by the Scribe were at my direction and personally dictated by me. I have reviewed the chart and agree that the record accurately reflects my personal performance of the history, physical exam, medical decision making, and the department course for this patient. I have also personally directed, reviewed, and agree with the discharge instructions and disposition. Disposition/Present on Arrival - Present on Arrival Any Indicators Present on Arrival: No History of DVT/PE: Yes History of Uncontrolled Diabetes: No Urinary Catheter: No History of Decub. Ulcer: No History Surgical Site Infection Following: None - Disposition Have Diagnosis and Disposition been Completed?: Yes Diagnosis: Chest pain Disposition: HOSPITALIZED Disposition Time: 17:26 Patient Plan: Admission Condition: GOOD
[2018-11-14 15:16] LABS: TROPONIN I < 0.01 ng/mL
[2018-11-14 15:24] LABS: BASO # 0.02 K/mm3 (0.0-2.0); BASO % 0.2 % (0.0-3.0); EOS # 0.1 (0.0-0.7); EOS % 1.5 % (1.5-5.0); HEMOGLOBIN 11.6 g/dL (12.0-16.0); LYMPH # 3.1 (1.2-3.4); LYMPH % 35.2 % (22.0-35.0); MEAN CELL VOLUME 78.4 fl (80.0-105.0); MEAN CORPUSCULAR HEMOGLOBIN 25.8 pg (25.0-35.0); MEAN CORPUSCULAR HGB CONC 32.9 g/dl (31.0-37.0); MEAN PLATELET VOLUME 9.2 fl (7.0-11.0); MONO # 0.4 (0.1-0.6); MONO % 4.3 % (1.0-6.0); RBC 4.5 10^6/uL (3.5-6.1); RED CELL DISTRIBUTION WIDTH 14.2 % (11.5-14.5); WHITE BLOOD COUNT 8.9 10^3/uL (4.5-11.0)
[2018-11-14] MEDS ORDERED: Iodixanol 320 MG/ML 100 ML BOTTLE IV ONE (16:01)
--- NOTE | 2018-11-14 16:56 | CT ---
PROCEDURE: CT Angiography Chest, Abdomen and Pelvis with and without intravenous contrast HISTORY: back pain radiating to chest COMPARISON: Comparison is made with the previous CTA of the chest dated 08/15/2018 TECHNIQUE: Contiguous axial images of the chest, abdomen and pelvis were obtained in the phase of aortic enhancement. A noncontrast enhanced CT of the chest was also obtained to evaluate for possible intramural thrombus. Coronal and sagittal reformats were generated. IV dose administered: 100 mL of Omnipaque 350 intravenously. Radiation dose: Total exam DLP = 1525.51 mGy-cm. This CT exam was performed using one or more of the following dose reduction techniques: Automated exposure control, adjustment of the mA and/or kV according to patient size, and/or use of iterative reconstruction technique. FINDINGS: CT ANGIOGRAPHY OF THE CHEST WITH & WITHOUT CONTRAST: AORTA (CHEST AND ABDOMEN): The thoracic and abdominal aorta are unremarkable, without aneurysm, dissection or rupture. No intramural thrombus identified in the thoracic aorta on the non-contrast ct of the chest. The celiac axis, superior mesenteric artery, inferior mesenteric artery and the renal arteries are widely patent. The pelvic arteries are unremarkable. LUNGS: No evidence of infiltrate or consolidation. Ground-glass opacities may represent mild congestion. MEDIASTINUM: Unremarkable. Normal caliber aorta. The main pulmonary artery is borderline enlarged measures 3 centimeter in the transverse diameter. No aortic dissection. Normal size heart. LYMPH NODES: Unremarkable. PLEURA: Unremarkable. No pneumothorax. No pleural fluid. BONES: Unremarkable. OTHER FINDINGS: None. CT ANGIOGRAPHY OF THE ABDOMEN AND PELVIS WITH CONTRAST: LIVER: The liver is mildly enlarged. Akje-ue-yyohifmm hepatic steatosis is noted. GALLBLADDER AND BILE DUCTS: Unremarkable. PANCREAS: Unremarkable. No gross lesion or ductal dilatation. SPLEEN: Unremarkable. ADRENALS: Unremarkable. No mass. KIDNEYS AND URETERS: Unremarkable. No hydronephrosis. No solid mass. VASCULATURE: Unremarkable. No aortic aneurysm. No aortic atherosclerotic calcification or mural plaque present. STOMACH AND BOWEL: Unremarkable. No obstruction. No gross mural thickening. APPENDIX: Normal appendix. PERITONEUM: Unremarkable. No free fluid. No free air. LYMPH NODES: Unremarkable. No enlarged lymph nodes. BLADDER: Unremarkable. REPRODUCTIVE: Unremarkable. BONES: No acute fracture. OTHER FINDINGS: None. IMPRESSION: No evidence of aortic dissection or aneurysm. Previously noted bilateral central pulmonary emboli in the previous CTA is not clearly seen in the current study. Mild pulmonary vascular congestion. No CT evidence of acute pathology in the abdomen and pelvis.
--- NOTE | 2018-11-14 18:04 | RAD ---
Date of service: 11/14/2018 PROCEDURE: CHEST RADIOGRAPH, 1 VIEW HISTORY: chest pain COMPARISON: None available. FINDINGS: LUNGS: Clear. PLEURA: No pneumothorax or pleural fluid seen. CARDIOVASCULAR: No aortic atherosclerotic calcification present. Normal. OSSEOUS STRUCTURES: No significant abnormalities. VISUALIZED UPPER ABDOMEN: Normal. OTHER FINDINGS: None. IMPRESSION: No active disease.
[2018-11-14 19:50] LABS: B-TYPE NATRIURETIC PEPTIDE 68.6 pg/mL (0-450); TROPONIN I < 0.01 ng/mL
[2018-11-14 22:34] VITALS: BMI 37.3
[2018-11-15 02:00] VITALS: RESP 20
--- NOTE | 2018-11-15 02:01 | HP ---
DATE OF EXAM: 11/14/2018 HISTORY OF PRESENT ILLNESS: I was called down to the emergency room to admit her. She is a 48-year-old female who presents to the emergency room complaining of back pain and chest pain. It feels worse when she takes a deep breath in, she is very anxious, and some shortness of breath. She has a history of DVT, on Xarelto. PRIMARY MEDICAL DOCTOR: She has no medical primary doctor. PAST MEDICAL HISTORY: Asthma and pulmonary embolism. She has a DVT. FAMILY HISTORY: No known family history. SOCIAL HISTORY: Never smoked. No alcohol. No drugs. ALLERGIES: SHE HAS ALLERGIES TO XOPENEX. MEDICATIONS: She is on Xarelto. REVIEW OF SYSTEMS: No acute vision or hearing changes. No sore throat. There is chest pain and upper back pain, very tender to palpation. She is very anxious. No abdominal pain. No nausea, vomiting, constipation, or diarrhea. No leg pains. Extremities are okay. PHYSICAL EXAMINATION: VITAL SIGNS: She has 98 temperature, 87 pulse, 141/84 blood pressure, and 99% O2 sat. GENERAL: Well-appearing, uncomfortable with back pain, upper chest pain, alert and oriented x3. HEENT: Head is atraumatic and normocephalic. Extraocular muscles are intact. Pupils are equal and reactive to light. Throat is moist. NECK: Supple. HEART: Regular rate. Normal S1 and S2. LUNGS: Decreased breath sounds, but clear to auscultation. ABDOMEN: Soft and nontender. Positive bowel sounds. BACK: Back is very tender to pain in the upper back and in the chest. EXTREMITIES: No edema of both legs and upper extremity, she can move very well. NEUROLOGIC: GCS is 15. Cranial nerves II through XII grossly intact. Speech is normal. Alert and oriented x3. SKIN: Warm and dry. No apparent rashes appreciated. LYMPHS: Thyroid midline. No palpable appreciable lymphadenopathy. LABORATORY DATA: She had multiple tests done. She had a chest x-ray, no active disease. She had a CT angio of the chest, questionable history of DVT, it showed no evidence of aortic dissection or aneurysm. Previously noted bilateral central pulmonary emboli and previous CTA is not clearly seen. Mild pulmonary vascular congestion, CAT scan evidence of acute pathology in the abdomen. She has an 8.9 white count, 11.6 hemoglobin, 35.3 hematocrit with 346 platelets. D-dimer is 202. Sodium 143, potassium 3.7, BUN 18, creatinine 1, GFR is 69, sugar is 115, and calcium is 10.7 a bit high. Magnesium is 1.7, total bili is 0.3, AST is 38, ALT is 29, and alk phos 88. Lactate dehydrogenase is 498, total creatine kinase is 184. Troponin I is less than 0.01, total protein is 8.4, albumin is 4.4, and globulin 4. I did not see a BNP done. ASSESSMENT AND PLAN: I will order Dr. Li consult, Cardiology. Check labs tomorrow morning. We will check the troponins. I have given some Toradol for pain. She will go back on her Xarelto. EKGs are pending. She is having severe chest pain, upper back pain, not sure why. We will continue aggressive treatment and care. She will be on observation level of care. Rajendra Amos DO MTDD
[2018-11-15 03:23] LABS: HEMOGLOBIN 11.1 g/dL (12.0-16.0); MEAN CELL VOLUME 78.9 fl (80.0-105.0); MEAN CORPUSCULAR HEMOGLOBIN 25.8 pg (25.0-35.0); MEAN CORPUSCULAR HGB CONC 32.6 g/dl (31.0-37.0); MEAN PLATELET VOLUME 8.9 fl (7.0-11.0); RBC 4.31 10^6/uL (3.5-6.1); RED CELL DISTRIBUTION WIDTH 14.3 % (11.5-14.5); WHITE BLOOD COUNT 7.1 10^3/uL (4.5-11.0)
[2018-11-15 03:35] LABS: TROPONIN I < 0.01 ng/mL
[2018-11-15 04:12] LABS: ALB/GLOB RATIO 1.1 (1.1-1.8); ALT/SGPT 31 U/L (7-56); AST/SGOT 26 U/L (14-36); BLOOD UREA NITROGEN 21 mg/dL (7-21); CALCIUM 9.7 mg/dL (8.4-10.5); GFR NON-AFRICAN AMERICAN 48
[2018-11-15 05:43] VITALS: BP 122/74; PULSE 72; TEMP 97.9; O2SAT 100
--- NOTE | 2018-11-15 10:14 | CARD ---
APPROVED REPORT Date of service: 11/14/2018 EKG Measurement Heart [id number] <Conclusion> Sinus tachycardia Minimal voltage criteria for LVH, may be normal variant Borderline ECG
--- NOTE | 2018-11-15 10:14 | CARD ---
APPROVED REPORT Date of service: 11/14/2018 EKG Measurement Heart [id number] <Conclusion> Normal sinus rhythm Minimal voltage criteria for LVH, may be normal variant Borderline ECG
--- NOTE | 2018-11-15 12:37 | CARD ---
APPROVED REPORT Date of service: 11/14/2018 EKG Measurement Heart [id number] [place] [id number] <Conclusion> Normal sinus rhythm Moderate voltage criteria for LVH, may be normal variant Borderline ECG
--- NOTE | 2018-11-15 13:01 | CON ---
DATE: 11/15/2018 CARDIOLOGY CONSULTATION HISTORY: The patient is a 48-year-old woman who presents with atypical chest pain consistent with musculoskeletal pain. She was admitted to the hospital to rule out myocardial infarction. PAST MEDICAL HISTORY: The patient's past medical history includes a history of pulmonary embolism more than one year ago, which she has been treated with Xarelto. She has been consistent with her medications. SOCIAL HISTORY: The patient does not smoke. No diabetes mellitus. No hypertension. REVIEW OF SYSTEMS: A 14-point review of systems was reviewed in detail. No cardiac symptomatology was noted. The patient's chest pain is now resolved. PHYSICAL EXAMINATION: VITAL SIGNS: Stable. NECK: Negative JVD. LUNGS: Without rales. HEART: Reveals S1, S2. EXTREMITIES: Without edema. LABORATORY DATA: EKG is within normal limits. Troponins are negative x3. Hemoglobin is 11.1 with a glucose of 122. IMPRESSION: 1. Atypical chest pain, more likely musculoskeletal. 2. No evidence for acute coronary syndrome. 3. History of pulmonary embolism. 4. Borderline diabetes mellitus. 5. Anemia. 6. Musculoskeletal chest pain. Given these findings, the patient can be discharged today. She will need to continue on her Xarelto. I have ordered an outpatient stress test, given her cardiac risk factors. Rufino Li MD
--- NOTE | 2018-11-15 22:12 | DS ---
HISTORY OF PRESENT ILLNESS: I saw her this morning sitting up in bed, eating her breakfast. She is comfortable, less back pain. No chest pain. She is in good spirits. She slept well. She was getting Toradol and Xarelto, which are her usual medications. She has a history of back pain, chest pain, and DVT. PHYSICAL EXAMINATION: GENERAL: She is comfortable and doing better this morning. VITAL SIGNS: She has a 97.9 temperature, 72 pulse, 122/74 blood pressure, 20 respiratory rate, and 100% O2 sat on room air. HEENT: Head is atraumatic and normocephalic. HEART: Regular rate. LUNGS: Clear to auscultation with decreased breath sounds, but clear. ABDOMEN: Soft, obese, and nontender. EXTREMITIES: No edema. I can palpate the back much better today; yesterday I could not. LABORATORY DATA: She has 140 sodium, potassium 4.5, BUN 21, creatinine 1.2, GFR is 48, sugar is 122, calcium is 9.7, and total bili is 0.3. AST is 26, ALT is 31, and alk phos is 78. All three troponins were less than 0.01. BNP was 68.6. Total protein is 7.8. D-dimer is 202. WBC 7.1, hemoglobin 11.1, hematocrit 34, and platelets 310. HOSPITAL COURSE: Overall, she did very well. The CT angio of the chest, mild pulmonary vascular congestion. No evidence of aortic dissection or aneurysm. Awaiting for Dr. Li, manager of production to see her this morning, should be able to be discharge with possible outpatient stress test as per Dr. Li. this morning after cardio see, she can go home. She will be on the same medication, which is Xarelto. Rajendra Amos DO MTDD
--- NOTE | 2018-11-18 08:29 | PQF ---
PROVIDER RESPONSE TEXT: As per pulmonology REVIEWER QUERY TEXT: Asthma Specificity and Type Asthma is documented in the Medical Record. Please specify the type and severity of asthma and indic ate if this is associated with exacerbation or status asthmaticus. Such as: -- Mild intermittent -- Mild persistent -- Moderate persistent -- Severe persistent -- Exercise induced bronchospasm -- Cough variant asthma -- Other, please specify The patient's Clinical Indicators include: Please see query. Thank you. Query created by: Shanda Arrington on 11/17/2018 2:46 PM Electronically signed by: Rajendra Amos DO 11/18/2018 8:26 AM
--- NOTE | 2018-11-19 08:08 | PQF ---
PROVIDER RESPONSE TEXT: Mild persistent REVIEWER QUERY TEXT: Asthma Specificity and Type Asthma is documented in the Medical Record. Please specify the type and severity of asthma and indic ate if this is associated with exacerbation or status asthmaticus. Such as: -- Mild intermittent -- Mild persistent -- Moderate persistent -- Severe persistent -- Exercise induced bronchospasm -- Cough variant asthma -- Other, please specify The patient's Clinical Indicators include: No Photograph Editor was consulted. Query created by: Shanda Arrington on 11/18/2018 9:42 AM Electronically signed by: Rajendra Amos DO 11/19/2018 8:05 AM
== END 2018-11-15 11:15 | disposition home or self-care (01) ==
LOC: ED 14:24 → ERH 17:26 → INTOOBSV 17:26 → 2RNO 20:01
PROVIDERS: ADMIT Family Medicine; ATTEND Family Medicine
DX: R07.89 Other chest pain (principal); D64.9 Anemia, unspecified; R73.03 Prediabetes; J45.30 Mild persistent asthma, uncomplicated; M54.89 Other dorsalgia; Z79.01 Long term (current) use of anticoagulants; Z86.711 Personal history of pulmonary embolism; Z86.718 Personal history of other venous thrombosis and embolism; Z88.8 Allergy status to other drugs, medicaments and biological substances
CPT/HCPCS: 36415; 71045; 71275; 74175; 80053; 82550; 83615; 83735; 83880; 84484; 85025; 85027; 85378; 93005; 96374; 96375; 99285; G0378; J1885; J2270; Q9967

== ENCOUNTER 2018-12-02 07:30 | Outpatient (CLI) | payer BC | END 2018-12-02 07:31 | disposition home or self-care (01) | LOC: CARDIO 07:30 | DX: R07.9 Chest pain, unspecified (principal); J45.909 Unspecified asthma, uncomplicated ==